=== PATIENT | male | born 1955 | race African-American/Black ===

== ENCOUNTER 2016-05-18 11:41 | Emergency (ER) | payer MEDICARE, OTHER ==
[~2016-05-18] VITALS: Ht 182.9 cm; Wt 95.3 kg
[~2016-05-18 11:41] MED LIST: ALBUTEROL SULF8.5 GM INH; ALBUTEROL2.5 MG/3 M INH; AMLODIPINE BES2.5 MG ORAL; AZITHROMYCIN250 MG ORAL; LEVAQUIN500 MG ORAL; LISINOPRIL-HCT1 EACH ORAL; METFORMIN HCL500 M1 ORAL; PREDNISONE20 MG ORAL; PROMETHAZINE-C118 M1 ORAL; TERAZOSIN HCL1 MG ORAL; TRADJENTA5 MG PO; ZOCOR20 M1 ORAL
[2016-05-18 12:39] LABS: APPEARANCE,URINE CLEAR; KETONES,URINE NEGATIVE (NEGATIVE); LEUKOCYTE ESTERASE ,URINE NEGATIVE (NEGATIVE); NITRITE,URINE NEGATIVE (NEGATIVE); PH,URINE 5 (4.5-8.0); PROTEIN,URINE NEGATIVE (NEGATIVE); UROBILINOGEN,URINE NORMAL MG/DL (0.0-1.0)
[2016-05-18] MEDS ORDERED: BACTRIM DS TAB1 EAC1 ORAL (13:06)
[2016-05-18 13:21] VITALS: BP 112/61
--- NOTE | 2016-05-18 18:06 | Emergency Room Report ---
History of Present Illness General Chief Complaint: Pain Present Illness HPI The patient is a 60-year-old male presenting with rectal pain which began 3 weeks prior. The pain is described as an 8/10 dull ache it does not radiate. No known relieving factors. Pain is worse with touch. The patient denies pain with defecation. Pt denies anal sex. The patient denies N, V, F, chills, dysuria, hematuria, penile DC, melena, hematochezia Allergies: Coded Allergies: TETRACYCLINES (Unverified Allergy, Unknown, 08/23/14) Patient History Past Medical History: see triage record Pertinent Family History: none Reviewed Nursing Documentation: PMH: Agreed, PSxH: Agreed Nursing Documentation-PMH Hx Cardiac Problems: No - high cholesterol Hx Hypertension: Yes Hx Diabetes: Yes Hx Dialysis: No - Chronic kidney disease Review of Systems All Other Systems: negative except mentioned in HPI Physical Exam Vital Signs Date Time Temp Pulse Resp B/P Pulse Ox O2 Delivery O2 Flow Rate FiO2 05/18/16 11:54 97.5 54 20 102/53 100 Room Air Sp02 EP Interpretation: reviewed, normal General Appearance: no apparent distress, alert, GCS 15, non-toxic Head: normocephalic, atraumatic Eyes: bilateral eye PERRL, bilateral eye normal inspection Gastrointestinal: normal bowel sounds, non tender, soft, no mass, non-distended , no guarding, no hernia, no rebound Genitourinary: normal inspection, no CVA tenderness, penis normal, prostate normal, other - TTP with palpation of testicles Musculoskeletal: back normal, gait/station normal, normal range of motion, non- tender Neurologic: alert, oriented x3, responsive, motor strength/tone normal, sensory intact, speech normal Psychiatric: judgement/insight normal, memory normal, mood/affect normal, no suicidal/homicidal ideation Skin: normal color, no rash, warm/dry, well hydrated Lymphatic: no adenopathy Medical Decision Making PA Attestation Dr. Demarco is my supervising physician. Patient management was discussed with my supervising physician Diagnostic Impression: Primary Impression: Orchitis ER Course The patient is a 60-year-old male presenting with rectal pain which began 3 weeks prior. Differential diagnosis considered: Hemorrhoids, prostatitis, STD, orchitis PE: vitals WNL. NAD. Abdomen: Normal appearance. Non distended. No ecchymosis. Normal BS. Non TTP. No McBurney point tenderness. No guarding. No CVA tenderness. Rectal exam: Normal rectal tone. Prostate is soft. No nodules.Not enlarged. Non tender TTP with palpation of testicles. No edema. Urinalysis is unremarkable. The patient will be treated for orchitis. Pt allergic to tetracyclines and will be ID'ed home with prescription for bactrim. Pt will FU with PMD [facility] Laboratory Tests Test 05/18/16 12:00 Urine Color Pale yellow Urine Appearance Clear Urine pH 5 (4.5-8.0) Urine Specific [place] 1.015 (1.005-1.035) Urine Protein Negative (NEGATIVE) Urine Glucose (UA) Negative (NEGATIVE) Urine Ketones Negative (NEGATIVE) Urine Occult Blood Negative (NEGATIVE) Urine Nitrite Negative (NEGATIVE) Urine Bilirubin Negative (NEGATIVE) Urine Urobilinogen Normal MG/DL (0.0-1.0) Urine Leukocyte Esterase Negative (NEGATIVE) Lab Results Impression Unremarkable Last Vital Signs Date Time Temp Pulse Resp B/P Pulse Ox O2 Delivery O2 Flow Rate FiO2 05/18/16 13:21 52 20 112/61 100 Room Air 05/18/16 13:19 97.5 Status: improved Disposition: HOME, SELF-CARE Condition: Improved Scripts Trimethoprim/Sulfamethoxazole 160/800* (BACTRIM DS TABLET*) 1 Each Tablet 1 TAB ORAL TWICE A DAY, #14 TAB Prov: JD GONZALEZ 05/18/16 Patient Instructions: Orchitis Additional Instructions: I discussed my findings with the patient. All questions and concerns have been answered. Treatment and medication compliance have been addressed. I advised the patient that they need to follow up with PMD in 3-5 days. Return to ED if symptoms worsen, new symptoms arise, or if needed for any reason. Patient verbalized understanding of discharge instructions. JD GONZALEZ May 18, 2016 18:06
== END 2016-05-18 13:21 | disposition home or self-care (01) ==
LOC: EMR 12:50
DX: N45.2 Orchitis (principal); Z88.1 Allergy status to other antibiotic agents; E78.00 Pure hypercholesterolemia, unspecified; E11.9 Type 2 diabetes mellitus without complications; I12.9 Hypertensive chronic kidney disease with stage 1 through stage 4 chronic kidney disease, or unspecified chronic kidney disease; N18.9 Chronic kidney disease, unspecified
CPT/HCPCS: 81003; 99282

== ENCOUNTER 2016-10-12 13:57 | Emergency (ER) | payer MEDICARE, OTHER ==
[~2016-10-12] VITALS: Ht 185.4 cm; Wt 97.5 kg
[~2016-10-12 13:57] MED LIST changes: +BACTRIM DS TAB1 EAC1 ORAL
[2016-10-12 14:27] VITALS: BP 106/64
--- NOTE | 2016-10-12 14:58 | Diagnostic Imaging Report ---
Indication: Chest pain Technique: Single portable AP view of the chest. Findings: Comparison: 02/29/2016 Thoracic vertebral osteophytes from aortic arch calcification again noted. Remaining bones and extra pulmonary soft tissues, remainder of the cardiomediastinal silhouette, pulmonary vasculature and parenchyma, and pleural surfaces are unremarkable. IMPRESSION: No evidence of acute cardiopulmonary disease, unchanged Stable chronic changes as described.
[2016-10-12 15:00] LABS: APPEARANCE,URINE CLEAR; KETONES,URINE NEGATIVE (NEGATIVE); LEUKOCYTE ESTERASE ,URINE NEGATIVE (NEGATIVE); NITRITE,URINE NEGATIVE (NEGATIVE); PH,URINE 6 (4.5-8.0); PROTEIN,URINE NEGATIVE (NEGATIVE); UROBILINOGEN,URINE NORMAL MG/DL (0.0-1.0)
[2016-10-12 15:07] LABS: BASOPHILS % (AUTO) 1.1 % (0.0-2.0); EOSINOPHILS % (AUTO) 2.8 % (0.0-3.0); LYMPHOCYTES % (AUTO) 27.4 % (20.0-45.0); MEAN CORPUSCULAR HEMOGLOBIN 28.8 PG (27.0-31.0); MEAN CORPUSCULAR HGB CONC 33.7 G/DL (32.0-36.0); MEAN CORPUSCULAR VOLUME 86 FL (80-99); MEAN PLATELET VOLUME 7.6 FL (6.5-10.1); MONOCYTES % (AUTO) 8.4 % (1.0-10.0); NEUTROPHILS % (AUTO) 60.3 % (45.0-75.0); PLATELET COUNT 163 K/UL (150-450); RED BLOOD COUNT 4.53 M/UL (4.70-6.10); RED CELL DISTRIBUTION WIDTH 12.3 % (11.6-14.8); WHITE BLOOD COUNT 7.2 K/UL (4.8-10.8)
[2016-10-12 15:11] VITALS: BP 126/48
[2016-10-12 15:19] LABS: ALBUMIN/GLOBULIN RATIO 1.3 (1.0-2.7); CALCIUM 10.4 mg/dL (8.6-10.2); CREATININE 3.1 mg/dL (0.7-1.2); GLOMERULAR FILTRATION RATE 24.8 mL/min (>60); POTASSIUM 4.1 mEQ/L (3.4-4.9); TOTAL PROTEIN 6.9 g/dL (6.6-8.7); TROPONIN I < 0.30 ng/mL (<=0.30)
--- NOTE | 2016-10-12 15:21 | Emergency Room Report ---
History of Present Illness General Chief Complaint: Generalized Weakness Source: Patient Present Illness HPI Patient complains of generalized weakness for the past few days. The patient states when he stands up he felt lightheaded like he could pass out. He states he also has had a cough for the past few weeks. He denies sputum production. He also complains of frequent urination. He denies dysuria. Denies fever or chills. He states that he is also had nausea but no vomiting. He denies headache neck pain. He denies abdominal pain. He has no other complaints. Allergies: Coded Allergies: TETRACYCLINES (Unverified Allergy, Unknown, 08/23/14) Patient History Past Medical History: see triage record, DM, HTN, renal disease, other - HLP Social History: Reports: alcohol use - 1 beer/week, drug use - THC, smoking - cigars Reviewed Nursing Documentation: PMH: Agreed, PSxH: Agreed Nursing Documentation-PMH Past Medical History: No History, Except For Hx Cardiac Problems: No - high cholesterol Hx Hypertension: Yes Hx Diabetes: Yes Hx Dialysis: No - Chronic kidney disease Review of Systems All Other Systems: negative except mentioned in HPI Physical Exam Vital Signs Date Time Temp Pulse Resp B/P Pulse Ox O2 Delivery O2 Flow Rate FiO2 10/12/16 14:10 98.4 66 18 106/64 97 Room Air Sp02 EP Interpretation: reviewed, normal General Appearance: no apparent distress, alert, GCS 15, non-toxic Head: normocephalic, atraumatic Eyes: bilateral eye PERRL, bilateral eye normal inspection ENT: hearing grossly normal, normal pharynx, no angioedema, normal voice Neck: full range of motion, supple/symm/no masses Respiratory: chest non-tender, lungs clear, normal breath sounds, no respiratory distress, no retraction, no accessory muscle use, speaking full sentences Cardiovascular #1: regular rate, rhythm, no edema, systolic murmur Gastrointestinal: normal bowel sounds, non tender, soft, non-distended, no guarding, no rebound Rectal: deferred Musculoskeletal: back normal, gait/station normal, normal range of motion, non- tender Neurologic: alert, oriented x3, responsive, motor strength/tone normal, sensory intact, speech normal Psychiatric: judgement/insight normal, memory normal, mood/affect normal, no suicidal/homicidal ideation Skin: normal color, no rash, warm/dry, well hydrated Medical Decision Making Diagnostic Impression: Primary Impression: Pre-syncope Additional Impressions: Azotemia Hyperglycemia ER Course I suspect the presyncope and symptoms that the patient is presenting with is a nonemergent in etiology. Regarding the history, and symptoms are nonexertional. On physical exam, the patient is not hypotensive, has no findings of CHF, and no significant cardiac murmur suggestive of valvular heart disease or cardiac outflow obstruction. The patient reports no history of seizure or head trauma. EKG showed no evidence of concerning findings of QT prolongation, Brugada syndrome or significant ST changes suggestive of acute ischemia, dysrhythmias or significant conduction abnormalities. On laboratory evaluation, blood sugar was elevated to 199 and the patient is not anemic. The patient was educated that the reason he likely is having polyuria is because he is not controlling his blood sugar well. He was educated on the dangers of poor diabetes control. The patient was counseled that, though unlikely, the possibility of an emergent cause of his symptoms may be present and that the patient should return immediately if symptoms persist or worsen. I believe the patient is stable for discharge to followup with his PMD for further workup. Labs Test 10/12/16 14:40 10/12/16 15:00 Urine Color Pale yellow Urine Appearance Clear Urine pH 6 (4.5-8.0) Urine Specific [place] 1.010 (1.005-1.035) Urine Protein Negative (NEGATIVE) Urine Glucose (UA) Negative (NEGATIVE) Urine Ketones Negative (NEGATIVE) Urine Occult Blood Negative (NEGATIVE) Urine Nitrite Negative (NEGATIVE) Urine Bilirubin Negative (NEGATIVE) Urine Urobilinogen Normal MG/DL (0.0-1.0) Urine Leukocyte Esterase Negative (NEGATIVE) Urine Opiates Screen Negative (NEGATIVE) Urine Barbiturates Screen Negative (NEGATIVE) Phencyclidine (PCP) Screen Negative (NEGATIVE) Urine Amphetamines Screen Negative (NEGATIVE) Urine Benzodiazepines Screen Negative (NEGATIVE) Urine Cocaine Screen Positive (NEGATIVE) Urine Marijuana (THC) Screen Negative (NEGATIVE) White Blood Count 7.2 K/UL (4.8-10.8) Red Blood Count 4.53 M/UL (4.70-6.10) Hemoglobin 13.1 G/DL (14.2-18.0) Hematocrit 38.8 % (42.0-52.0) Mean Corpuscular Volume 86 FL (80-99) Mean Corpuscular Hemoglobin 28.8 PG (27.0-31.0) Mean Corpuscular Hemoglobin Concent 33.7 G/DL (32.0-36.0) Red Cell Distribution Width 12.3 % (11.6-14.8) Platelet Count 163 K/UL (150-450) Mean Platelet Volume 7.6 FL (6.5-10.1) Neutrophils (%) (Auto) 60.3 % (45.0-75.0) Lymphocytes (%) (Auto) 27.4 % (20.0-45.0) Monocytes (%) (Auto) 8.4 % (1.0-10.0) Eosinophils (%) (Auto) 2.8 % (0.0-3.0) Basophils (%) (Auto) 1.1 % (0.0-2.0) Prothrombin Time 10.0 SEC (9.30-11.50) Prothromb Time International Ratio 1.0 (0.9-1.1) Activated Partial Thromboplast Time 28 SEC (23-33) Sodium Level 137 mEQ/L (135-145) Potassium Level 4.1 mEQ/L (3.4-4.9) Chloride Level 99 mEQ/L (98-107) Carbon Dioxide Level 23 mEQ/L (20-30) Anion Gap 15 (5-15) Blood Urea Nitrogen 35 mg/dL (7-23) Creatinine 3.1 mg/dL (0.7-1.2) Estimat Glomerular Filtration Rate 24.8 mL/min (>60) Glucose Level 199 mg/dL (74-106) Calcium Level 10.4 mg/dL (8.6-10.2) Total Bilirubin 0.6 mg/dL (0.0-1.2) Aspartate Amino Transf (AST/SGOT) 16 U/L (5-40) Alanine Aminotransferase (ALT/SGPT) 12 U/L (3-41) Alkaline Phosphatase 46 U/L (40-129) Total Creatine Kinase 212 U/L (38-174) Troponin I < 0.30 ng/mL (<=0.30) Total Protein 6.9 g/dL (6.6-8.7) Albumin 4.0 g/dL (3.5-5.2) Globulin 2.9 g/dL Albumin/Globulin Ratio 1.3 (1.0-2.7) EKG Diagnostic Results Rate: normal Rhythm: NSR ST Segments: no acute changes Rhythm Strip Diag. Results EP Interpretation: yes Rate: 60's Rhythm: NSR, no PVC's, no ectopy Chest X-Ray Diagnostic Results Chest X-Ray Ordered: Yes # of Views/Limited/Complete: 1 View Interpretation: no consolidation, no effusion, no pneumothorax, no acute cardiopulmonary disease Indication: Other - cough Impression: No acute disease Date Electronically Signed: Oct 12, 2016 Time Electronically Signed: 15:23 Interpreting ER Physician: Alondra Last Vital Signs Date Time Temp Pulse Resp B/P Pulse Ox O2 Delivery O2 Flow Rate FiO2 10/12/16 15:11 63 18 126/48 97 Room Air 10/12/16 14:27 98.4 Status: improved Disposition: HOME, SELF-CARE Condition: Improved Referrals: NON PHYSICIAN (PCP) Patient Instructions: Near-Syncope, [id number], Weakness MONICA CARDOZO D.O. Oct 12, 2016 15:21
[2016-10-12 15:29] LABS: CKMB 2.9 ng/mL (< 6.7)
[2016-10-12 15:57] VITALS: BP 121/51
--- NOTE | 2016-10-13 15:29 | Cardiology Report ---
APPROVED REPORT EKG Measurement Heart [id number] ID [id number] Normal sinus rhythm Minimal voltage criteria for LVH, may be normal variant Borderline ECG
== END 2016-10-12 16:04 | disposition home or self-care (01) ==
LOC: EMR 14:54
DX: R55 Syncope and collapse (principal); E11.65 Type 2 diabetes mellitus with hyperglycemia; I12.9 Hypertensive chronic kidney disease with stage 1 through stage 4 chronic kidney disease, or unspecified chronic kidney disease; N18.9 Chronic kidney disease, unspecified; F17.210 Nicotine dependence, cigarettes, uncomplicated; Z88.1 Allergy status to other antibiotic agents
CPT/HCPCS: 36415; 71010; 80053; 80300; 81003; 82550; 82553; 82962; 84484; 85025; 85610; 85730; 93005; 96374; 96375

== ENCOUNTER 2017-02-01 10:55 | Emergency (ER) | payer MEDICARE, OTHER ==
[~2017-02-01] VITALS: Ht 182.9 cm; Wt 95.3 kg
[2017-02-01 11:09] VITALS: BP 122/59
[2017-02-01 12:00] LABS: EOSINOPHILS % (AUTO) 2.7 % (0.0-3.0); LYMPHOCYTES % (AUTO) 29.8 % (20.0-45.0); MEAN CORPUSCULAR HEMOGLOBIN 29.2 PG (27.0-31.0); MEAN CORPUSCULAR HGB CONC 32.5 G/DL (32.0-36.0); MEAN CORPUSCULAR VOLUME 90 FL (80-99); MEAN PLATELET VOLUME 7.6 FL (6.5-10.1); MONOCYTES % (AUTO) 9.5 % (1.0-10.0); PLATELET COUNT 212 K/UL (150-450); RED BLOOD COUNT 4.81 M/UL (4.70-6.10); RED CELL DISTRIBUTION WIDTH 14.2 % (11.6-14.8); WHITE BLOOD COUNT 6.2 K/UL (4.8-10.8)
[2017-02-01 12:06] LABS: APPEARANCE,URINE CLEAR; KETONES,URINE NEGATIVE (NEGATIVE); LEUKOCYTE ESTERASE ,URINE NEGATIVE (NEGATIVE); NITRITE,URINE NEGATIVE (NEGATIVE); PH,URINE 6 (4.5-8.0); PROTEIN,URINE NEGATIVE (NEGATIVE); UROBILINOGEN,URINE NORMAL MG/DL (0.0-1.0)
--- NOTE | 2017-02-01 12:23 | Diagnostic Imaging Report ---
Indication: Chest pain Comparison: 10/12/16 A single view chest radiograph was obtained. Findings: Cardiomediastinal appearance is within normal limits for age. Pulmonary vascularity is appropriate. The diaphragmatic contour is smooth and costophrenic angles are sharp. No pleural effusions are identified. The bones are unremarkable. Impression: No acute findings
[2017-02-01 12:37] LABS: ALANINE AMINOTRANSFERASE 21 U/L (12-78); ANION GAP 12 (5-15); ASPARTATE AMINO TRANSFERASE 19 U/L (15-37); CALCIUM 10.9 MG/DL (8.5-10.1); CARBON DIOXIDE 26 MMOL/L (21-32); CHLORIDE 107 MMOL/L (98-107); CKMB 2.9 NG/ML (0.0-3.6); CREATININE 2.4 MG/DL (0.55-1.30); GLOMERULAR FILTRATION RATE 33.3 mL/min (>60); SODIUM 141 MMOL/L (136-145); TOTAL PROTEIN 7.7 G/DL (6.4-8.2)
[2017-02-01 13:10] VITALS: BP 144/75
--- NOTE | 2017-02-01 14:15 | Diagnostic Imaging Report ---
Indication:Scrotal pain Technique: Real time grayscale and duplex Doppler imaging of the scrotum performed. Comparison: None Findings: The size, contour, and echogenicitiy of the testis appear normal bilaterally. There is no mass or abnormal fluid collections within the scrotum. Bilateral epididymal cysts are present. There are also cysts involving the peripheral aspect of the testis consistent tunica cysts. There is good doppler evidence of blood flow within both testes. Epididimi are unremarkable otherwise. ] This measures 3.9 x 9 x 2.8 cm. Left testis 4 x 2.1 x 3.1 cm. Impression: No acute pathology. No evidence of testicular torsion or mass.
--- NOTE | 2017-02-01 14:44 | Emergency Room Report ---
History of Present Illness General Chief Complaint: Chest Pain Source: Patient, Medical Record Present Illness HPI This patient complains of left-sided chest pain that he has had for the past few weeks. He states it has been constant. He describes it as sharp. It is sometimes worse with movement and he can localize it to a couple fingers. He denies recent illness. Denies cough or congestion. He denies fever or chills. He denies shortness of breath. He denies abdominal pain. He states that he also was doing a self testicular exam and noted that in his right testicle there was a lump. He had not felt this previously. He denies pain in this location. He denies dysuria or hematuria. He has no other complaints. Allergies: Coded Allergies: TETRACYCLINES (Unverified Allergy, Unknown, 08/23/14) Patient History Past Medical History: see triage record, DM, HTN, renal disease, other - HLP Social History: Reports: smoking - occasional tobacco 1 cig/week. Occ ETOH, Occ THC Reviewed Nursing Documentation: PMH: Agreed, PSxH: Agreed Nursing Documentation-PMH Past Medical History: No History, Except For Hx Cardiac Problems: No - high cholesterol Hx Hypertension: Yes Hx Diabetes: Yes Hx Dialysis: No - Chronic kidney disease Review of Systems All Other Systems: negative except mentioned in HPI Physical Exam Vital Signs Date Time Temp Pulse Resp B/P (MAP) Pulse Ox O2 Delivery O2 Flow Rate FiO2 02/01/17 10:59 97.5 55 16 123/67 99 Room Air Sp02 EP Interpretation: reviewed, normal General Appearance: no apparent distress, alert, GCS 15, non-toxic Head: normocephalic, atraumatic Eyes: bilateral eye normal inspection, bilateral eye PERRL ENT: hearing grossly normal, normal pharynx, no angioedema, normal voice Neck: full range of motion, supple/symm/no masses Respiratory: chest non-tender, lungs clear, normal breath sounds, speaking full sentences Cardiovascular #1: regular rate, rhythm, no edema Gastrointestinal: normal bowel sounds, non tender, soft, non-distended, no guarding, no rebound Rectal: deferred Genitourinary: normal inspection Musculoskeletal: back normal, gait/station normal, normal range of motion, non- tender, calf tenderness Neurologic: alert, oriented x3, responsive, motor strength/tone normal, sensory intact, speech normal Psychiatric: judgement/insight normal, memory normal, mood/affect normal, no suicidal/homicidal ideation Reflexes: 3+ bicep (R), 3+ bicep (L), 3+ tricep (R), 3+ tricep (L), 3+ knee (R) , 3+ knee (L) Skin: normal color, no rash, warm/dry, well hydrated Lymphatic: no adenopathy Medical Decision Making Diagnostic Impression: Primary Impression: Chest pain ER Course This patient has nonspecific chest pain. Given the length of symptoms, this workup is very reassuring with negative cardiac enzymes, normal EKG, and normal chest x-ray. The patient is low risk and his symptoms are atypical for acute coronary syndrome. I have very low suspicion for PE, aortic dissection or pneumothorax based on history/physical, laboratory and radiologic workup. The patient also had complained of pinning a mass on his testicle, however ultrasound did not identify this. The patient was given close return precautions and followup instructions. Laboratory Tests Test 02/01/17 11:24 02/01/17 11:45 Urine Color Pale yellow Urine Appearance Clear Urine pH 6 (4.5-8.0) Urine Specific [place] 1.015 (1.005-1.035) Urine Protein Negative (NEGATIVE) Urine Glucose (UA) Negative (NEGATIVE) Urine Ketones Negative (NEGATIVE) Urine Occult Blood Negative (NEGATIVE) Urine Nitrite Negative (NEGATIVE) Urine Bilirubin Negative (NEGATIVE) Urine Urobilinogen Normal MG/DL (0.0-1.0) Urine Leukocyte Esterase Negative (NEGATIVE) White Blood Count 6.2 K/UL (4.8-10.8) Red Blood Count 4.81 M/UL (4.70-6.10) Hemoglobin 14.0 G/DL (14.2-18.0) L Hematocrit 43.1 % (42.0-52.0) Mean Corpuscular Volume 90 FL (80-99) Mean Corpuscular Hemoglobin 29.2 PG (27.0-31.0) Mean Corpuscular Hemoglobin Concent 32.5 G/DL (32.0-36.0) Red Cell Distribution Width 14.2 % (11.6-14.8) Platelet Count 212 K/UL (150-450) Mean Platelet Volume 7.6 FL (6.5-10.1) Neutrophils (%) (Auto) 57.0 % (45.0-75.0) Lymphocytes (%) (Auto) 29.8 % (20.0-45.0) Monocytes (%) (Auto) 9.5 % (1.0-10.0) Eosinophils (%) (Auto) 2.7 % (0.0-3.0) Basophils (%) (Auto) 1.0 % (0.0-2.0) Sodium Level 141 MMOL/L (136-145) Potassium Level 4.0 MMOL/L (3.5-5.1) Chloride Level 107 MMOL/L (98-107) Carbon Dioxide Level 26 MMOL/L (21-32) Anion Gap 12 (5-15) Blood Urea Nitrogen 31 mg/dL (7-18) H Creatinine 2.4 MG/DL (0.55-1.30) H Estimate Glomerular Filtration Rate 33.3 mL/min (>60) Glucose Level 96 MG/DL (74-106) Calcium Level 10.9 MG/DL (8.5-10.1) H Total Bilirubin 0.7 MG/DL (0.2-1.0) Aspartate Amino Transferase (AST) 19 U/L (15-37) Alanine Aminotransferase (ALT) 21 U/L (12-78) Alkaline Phosphatase 54 U/L (46-116) Total Creatine Kinase 192 U/L (26-308) Creatine Kinase MB 2.9 NG/ML (0.0-3.6) Creatine Kinase MB Relative Index 1.5 Troponin I 0.004 ng/mL (0.000-0.056) Total Protein 7.7 G/DL (6.4-8.2) Albumin 3.9 G/DL (3.4-5.0) Globulin 3.8 g/dL Albumin/Globulin Ratio 1.0 (1.0-2.7) Urine Opiates Screen Negative (NEGATIVE) Urine Barbiturates Screen Negative (NEGATIVE) Phencyclidine (PCP) Screen Negative (NEGATIVE) Urine Amphetamines Screen Negative (NEGATIVE) Urine Benzodiazepines Screen Negative (NEGATIVE) Urine Cocaine Screen Positive (NEGATIVE) H Urine Marijuana (THC) Screen Negative (NEGATIVE) EKG Diagnostic Results Rhythm: other - S.bradycardia ST Segments: other Other Impression NSST Rhythm Strip Diag. Results EP Interpretation: yes Rate: 50's Rhythm: no PVC's, no ectopy, other Other Impression S.ramsey Chest X-Ray Diagnostic Results Chest X-Ray Diagnostic Results : Chest X-Ray Ordered: Yes # of Views/Limited/Complete: 1 View Indication: Chest Pain EP Interpretation: Yes Interpretation: no consolidation, no effusion, no pneumothorax, no acute cardiopulmonary disease Impression: No acute disease Electronically Signed by: Alondra CT/MRI/US Diagnostic Results CT/MRI/US Diagnostic Results : Imaging Test Ordered: Testicular US Impression Normal. No mass. Last Vital Signs Date Time Temp Pulse Resp B/P (MAP) Pulse Ox O2 Delivery O2 Flow Rate FiO2 02/01/17 11:09 62 16 Room Air 02/01/17 11:09 97.5 122/59 100 Status: improved Disposition: HOME, SELF-CARE Condition: Improved Referrals: NON PHYSICIAN (PCP) Patient Instructions: Nonspecific Chest Pain MONICA CARDOZO D.O. Feb 01, 2017 14:44
[2017-02-01 15:30] VITALS: BP 135/76
--- NOTE | 2017-02-12 15:51 | Cardiology Report ---
APPROVED REPORT EKG Measurement Heart [id number] Sinus bradycardia Left axis deviation Incomplete right bundle branch block Minimal voltage criteria for LVH, may be normal variant Nonspecific T wave abnormality Abnormal ECG
== END 2017-02-01 15:30 | disposition home or self-care (01) ==
LOC: EMR 11:05
DX: R07.89 Other chest pain (principal); E11.9 Type 2 diabetes mellitus without complications; I12.9 Hypertensive chronic kidney disease with stage 1 through stage 4 chronic kidney disease, or unspecified chronic kidney disease; N18.9 Chronic kidney disease, unspecified; Z88.1 Allergy status to other antibiotic agents; E78.00 Pure hypercholesterolemia, unspecified
CPT/HCPCS: 36415; 71010; 76870; 80053; 80300; 81003; 82550; 82553; 84484; 85025; 93005; 99284

== ENCOUNTER 2017-03-29 13:51 | Emergency (ER) | payer MEDICARE, OTHER ==
[~2017-03-29] VITALS: Ht 182.9 cm; Wt 97.5 kg
[2017-03-29] MEDS ORDERED: Sodium Chloride 500ML 500 ML IV ONE (14:22)
[2017-03-29 14:35] VITALS: BP 115/66
[2017-03-29 14:50] LABS: BASOPHILS % (AUTO) 1.8 % (0.0-2.0); EOSINOPHILS % (AUTO) 2.4 % (0.0-3.0); LYMPHOCYTES % (AUTO) 24.5 % (20.0-45.0); MEAN CORPUSCULAR HEMOGLOBIN 27.9 PG (27.0-31.0); MEAN CORPUSCULAR HGB CONC 31.8 G/DL (32.0-36.0); MEAN CORPUSCULAR VOLUME 88 FL (80-99); MEAN PLATELET VOLUME 9.5 FL (6.5-10.1); NEUTROPHILS % (AUTO) 57.4 % (45.0-75.0); PLATELET COUNT 239 K/UL (150-450); RED BLOOD COUNT 5.77 M/UL (4.70-6.10); RED CELL DISTRIBUTION WIDTH 13.3 % (11.6-14.8); WHITE BLOOD COUNT 6.2 K/UL (4.8-10.8)
[2017-03-29 14:52] LABS: APPEARANCE,URINE CLEAR; KETONES,URINE NEGATIVE (NEGATIVE); LEUKOCYTE ESTERASE ,URINE NEGATIVE (NEGATIVE); NITRITE,URINE NEGATIVE (NEGATIVE); PH,URINE 6 (4.5-8.0); PROTEIN,URINE 1+ (NEGATIVE); UROBILINOGEN,URINE NORMAL MG/DL (0.0-1.0)
--- NOTE | 2017-03-29 14:59 | Emergency Room Report ---
History of Present Illness General Chief Complaint: Abdominal Pain Source: Patient Present Illness HPI 61-year-old male presents ED for abdominal pain times one week. Patient notes pain over the epigastric region radiating to both flanks, 6/10, sharp. Patient states he has history of hiatal hernia but states this pain feels different. Pain is intermittent. Denies chest pain or shortness breath. Denies fevers or chills. Denies nausea or vomiting. No other aggravating relieving factors. Denies any other associated symptoms Allergies: Coded Allergies: TETRACYCLINES (Unverified Allergy, Unknown, 08/23/14) Patient History Past Medical History: DM, HTN Past Surgical History: none Pertinent Family History: none Social History: Denies: smoking, alcohol use, drug use Immunizations: UTD Reviewed Nursing Documentation: PMH: Agreed, PSxH: Agreed Nursing Documentation-PMH Hx Cardiac Problems: No - high cholesterol Hx Hypertension: Yes Hx Diabetes: Yes Hx Dialysis: No - Chronic kidney disease Review of Systems All Other Systems: negative except mentioned in HPI Physical Exam Vital Signs Date Time Temp Pulse Resp B/P (MAP) Pulse Ox O2 Delivery O2 Flow Rate FiO2 03/29/17 14:05 99.1 107 18 151/81 97 03/29/17 14:35 Room Air Sp02 EP Interpretation: reviewed, normal General Appearance: no apparent distress, alert, GCS 15, non-toxic Head: normocephalic, atraumatic Eyes: bilateral eye normal inspection, bilateral eye PERRL ENT: hearing grossly normal, normal pharynx, no angioedema, normal voice Neck: full range of motion, supple/symm/no masses Respiratory: chest non-tender, lungs clear, normal breath sounds, speaking full sentences Cardiovascular #1: regular rate, rhythm, no edema Cardiovascular #2: 2+ carotid (R), 2+ carotid (L), 2+ radial (R), 2+ radial (L) , 2+ dorsalis pedis (R), 2+ dorsalis pedis (L) Gastrointestinal: normal bowel sounds, soft, non-distended, no guarding, no rebound, tenderness Rectal: deferred Genitourinary: normal inspection, no CVA tenderness Musculoskeletal: back normal, gait/station normal, normal range of motion, non- tender Neurologic: alert, oriented x3, responsive, motor strength/tone normal, sensory intact, speech normal Psychiatric: judgement/insight normal, memory normal, mood/affect normal, no suicidal/homicidal ideation Reflexes: 3+ bicep (R), 3+ bicep (L), 3+ tricep (R), 3+ tricep (L), 3+ knee (R) , 3+ knee (L) Skin: normal color, no rash, warm/dry, well hydrated Lymphatic: no adenopathy Medical Decision Making Diagnostic Impression: Primary Impression: Abdominal pain Qualified Codes: R10.13 - Epigastric pain Additional Impression: CKD (chronic kidney disease) Qualified Codes: N18.9 - Chronic kidney disease, unspecified ER Course Hospital Course 61-year-old M presents to ED with abdominal pain Differential diagnosis includes-appendicitis, cholecystitis, small bowel obstruction, gastritis, Clinical course Patient placed on stretcher. After initial history and physical I ordered labs , IV fluids, pain medications and CT scan Labs - no leukocytosis, Cr 2.2, LFTs normal, lipase 199 CT scan shows prominence of pancreatitis suggestive of pancreatitis I discussed the findings with the patient. Patient has no leukocytosis. Patient is not in distress. No guarding or rebound on exam. Lipase 199. I discussed option for admission with patient; patient stated he prefers to be discharged and will followup with PMD I feel this is a highly complex case requiring extensive working including EKG/ Rhythm strip, Xray/CT/US, Blood/urine lab work, repeat exams while in ED, and administration of strong opiates/narcotics for pain control, admission to hospital or close patient follow up. Diagnosis - abdominal pain, CKD Stable and discharged to home with Rx Tramadol. Followup with PMD. Return to ED if symptoms recur or worsen Labs Test 03/29/17 14:30 White Blood Count 6.2 K/UL (4.8-10.8) Red Blood Count 5.77 M/UL (4.70-6.10) Hemoglobin 16.1 G/DL (14.2-18.0) Hematocrit 50.6 % (42.0-52.0) Mean Corpuscular Volume 88 FL (80-99) Mean Corpuscular Hemoglobin 27.9 PG (27.0-31.0) Mean Corpuscular Hemoglobin Concent 31.8 G/DL (32.0-36.0) Red Cell Distribution Width 13.3 % (11.6-14.8) Platelet Count 239 K/UL (150-450) Mean Platelet Volume 9.5 FL (6.5-10.1) Neutrophils (%) (Auto) 57.4 % (45.0-75.0) Lymphocytes (%) (Auto) 24.5 % (20.0-45.0) Monocytes (%) (Auto) 14.0 % (1.0-10.0) Eosinophils (%) (Auto) 2.4 % (0.0-3.0) Basophils (%) (Auto) 1.8 % (0.0-2.0) Urine Color Pale yellow Urine Appearance Clear Urine pH 6 (4.5-8.0) Urine Specific [place] 1.010 (1.005-1.035) Urine Protein 1+ (NEGATIVE) Urine Glucose (UA) Negative (NEGATIVE) Urine Ketones Negative (NEGATIVE) Urine Occult Blood 1+ (NEGATIVE) Urine Nitrite Negative (NEGATIVE) Urine Bilirubin Negative (NEGATIVE) Urine Urobilinogen Normal MG/DL (0.0-1.0) Urine Leukocyte Esterase Negative (NEGATIVE) Urine RBC 0-2 /HPF (0 - 0) Urine WBC 0-2 /HPF (0 - 0) Urine Squamous Epithelial Cells None /LPF (NONE/OCC) Urine Bacteria Few /HPF (NONE) Sodium Level 139 MMOL/L (136-145) Potassium Level 4.0 MMOL/L (3.5-5.1) Chloride Level 105 MMOL/L (98-107) Carbon Dioxide Level 27 MMOL/L (21-32) Anion Gap 7 mmol/L (5-15) Blood Urea Nitrogen 25 mg/dL (7-18) Creatinine 2.2 MG/DL (0.55-1.30) Estimat Glomerular Filtration Rate 36.8 mL/min (>60) Glucose Level 127 MG/DL (74-106) Calcium Level 10.5 MG/DL (8.5-10.1) Total Bilirubin 0.6 MG/DL (0.2-1.0) Aspartate Amino Transf (AST/SGOT) 24 U/L (15-37) Alanine Aminotransferase (ALT/SGPT) 23 U/L (12-78) Alkaline Phosphatase 65 U/L (46-116) Troponin I 0.007 ng/mL (0.000-0.056) Total Protein 7.8 G/DL (6.4-8.2) Albumin 3.9 G/DL (3.4-5.0) Globulin 3.9 g/dL Albumin/Globulin Ratio 1.0 (1.0-2.7) Lipase 199 U/L (73-393) CT/MRI/US Diagnostic Results CT/MRI/US Diagnostic Results : Imaging Test Ordered: CT A/P Impression ? pancreatitis Last Vital Signs Date Time Temp Pulse Resp B/P (MAP) Pulse Ox O2 Delivery O2 Flow Rate FiO2 03/29/17 14:35 87 20 115/66 100 Room Air 03/29/17 14:05 99.1 Status: improved Disposition: HOME, SELF-CARE Condition: Stable Scripts Codeine/Promethazine Hcl* (PROMETHAZINE-CODEINE SYRUP*) 118 Ml Syrup 5 ML ORAL Q6H Y for For Cough, #118 ML 0 Refills Prov: STUART DENNIS M.D. 03/29/17 Tramadol Hcl* (ULTRAM*) 50 Mg Tablet 50 MG ORAL Q6H Y for For Pain, #20 TAB 0 Refills Prov: STUART DENNIS M.D. 03/29/17 Referrals: NON PHYSICIAN (PCP) STUART DENNIS M.D. Mar 29, 2017 14:59
[2017-03-29 15:03] LABS: ANION GAP 7 mmol/L (5-15); CALCIUM 10.5 MG/DL (8.5-10.1); CARBON DIOXIDE 27 MMOL/L (21-32); CHLORIDE 105 MMOL/L (98-107); CREATININE 2.2 MG/DL (0.55-1.30); GLOMERULAR FILTRATION RATE 36.8 mL/min (>60); SODIUM 139 MMOL/L (136-145)
[2017-03-29 15:07] LABS: ALANINE AMINOTRANSFERASE 23 U/L (12-78); ASPARTATE AMINO TRANSFERASE 24 U/L (15-37); LIPASE 199 U/L (73-393); TOTAL PROTEIN 7.8 G/DL (6.4-8.2)
[2017-03-29 15:16] LABS: BACTERIA,URINE FEW /HPF; RBC,URINE 0-2 /HPF (0 - 0); WBC,URINE 0-2 /HPF (0 - 0)
--- NOTE | 2017-03-29 16:13 | Diagnostic Imaging Report ---
Indication: Abdominal pain x1 week, 10/03, sharp, over the epigastric region radiating to both legs. History of hiatal hernia Technique: Spiral acquisitions obtained through the abdomen and pelvis. No oral contrast utilized, per emergency room physician request No IV contrast utilized, per emergency room physician request.. Multiplanar reconstructions were generated. Total dose length product 765 mGycm. CTDIvol(s) 15 mGy. Dose reduction achieved using automated exposure control Comparison: None Findings: Lack of IV contrast limits assessment of the GI tract. There are small colonic diverticula. No evidence of diverticulitis. The appendix is normal. Small bowel loops are diffusely mildly prominent, gas-filled, but no joana distention demonstrated. No free or loculated intraperitoneal air or fluid is demonstrated. Distal esophagus, stomach, duodenum are unremarkable. There is mild diastasis of the rectus abdominis tendon but no joana anterior abdominal wall herniation. There is borderline herniation of a small amount of fat into the left renal canal The lack of IV contrast limits assessment of the solid organs. The pancreatic head and uncinate process are somewhat prominent, and there is questionable slight infiltration of the fat in this area. There are questionable tiny gallstones. No definite biliary ductal dilatation or common bile duct calculi. The liver is grossly unremarkable. The spleen is grossly unremarkable. The adrenals are unremarkable. Calcification in the right renal hilum is probably arterial. No renal or ureteral calculi, hydronephrosis, or hydroureter. There is a prominent right extrarenal pelvis. The bladder is somewhat thick walled. The prostate is somewhat enlarged, measuring 4.8 a 4.4 x 3.1 cm. The visualized lung bases demonstrate scarring in the medial right lower lobe, are otherwise clear. The bones demonstrate mild degenerative spondylosis changes. Impression: Limited assessment of the GI tract due to lack of oral contrast. Limited assessment of the solid organs due to lack of IV contrast Slightly prominent pancreatic head and uncinate process, equivocal slight infiltration of the adjacent peripancreatic fat, if real could indicate early acute pancreatitis changes. Correlate with laboratory findings Thickwalled bladder, could indicate cystitis or be on the basis of chronic bladder outlet obstruction No acute process otherwise Equivocal cholelithiasis Prostatomegaly Other findings as noted, including medial right lower lobe pulmonary scarring, degenerative spondylosis, borderline small fat-containing left inguinal hernia The CT scanner at [facility] is accredited by the [employer] and the scans are performed using protocols designed to limit radiation exposure to as low as reasonably achievable to attain images of sufficient resolution adequate for diagnostic evaluation.
[2017-03-29] MEDS ORDERED: TRAMADOL HCL50 MG ORAL (16:25)
[2017-03-29] MEDS ORDERED: PROMETHAZINE-C118 M1 ORAL (16:25)
[2017-03-29 16:40] VITALS: BP 135/73
== END 2017-03-29 16:40 | disposition home or self-care (01) ==
LOC: EMR 14:30
DX: E11.22 Type 2 diabetes mellitus with diabetic chronic kidney disease (principal); I12.9 Hypertensive chronic kidney disease with stage 1 through stage 4 chronic kidney disease, or unspecified chronic kidney disease; N18.9 Chronic kidney disease, unspecified; R10.13 Epigastric pain; E78.00 Pure hypercholesterolemia, unspecified; Z88.1 Allergy status to other antibiotic agents
CPT/HCPCS: 36415; 74176; 80053; 81003; 83690; 84484; 85025; 96360; 96361; 99284

== ENCOUNTER 2017-04-12 09:21 | Emergency (ER) | payer MEDICARE, OTHER ==
[~2017-04-12] VITALS: Ht 182.9 cm; Wt 95.3 kg
[~2017-04-12 09:21] MED LIST changes: +TRAMADOL HCL50 MG ORAL
[2017-04-12 09:29] VITALS: BP 133/73
[2017-04-12] MEDS ORDERED: Acetaminophen 500mg (ES) tab ORAL ONE (10:15)
--- NOTE | 2017-04-12 10:43 | Diagnostic Imaging Report ---
Indication: Headache Technique: Contiguous 5 mm thick transaxial imaging of the head obtained in a Siemens Sensation [address] scanner. Soft tissue and bone windows generated. Automatic Exposure Control was utilized. Total Dose length Product (DLP): 1397.[address] Dose Index Volume (CTDIvol): 70.38 mGy Comparison: none Findings: The size and configuration of the cortical sulci, basal cisterns, and ventricles are within normal limits for age. There is no mass effect, midline shift, or edema identified. There is no evidence of acute hemorrhage or abnormal intra-axial or extra-axial fluid collections. The bones and soft tissues are unremarkable. Impression: No mass effect, edema or acute bleed. The CT scanner at [facility] is accredited by the [employer] and the scans are performed using dose optimization techniques as appropriate to a performed exam including Automatic Exposure control.
[2017-04-12] MEDS ORDERED: TYLENOL EXTRA500 MG ORAL (10:56)
[2017-04-12 10:58] VITALS: BP 133/73
--- NOTE | 2017-04-12 14:00 | Emergency Room Report ---
History of Present Illness General Chief Complaint: Pain Source: Patient, Medical Record Present Illness HPI 61-year-old male presents ED complaining of headache and left foot pain. Started 3 days ago. Denies trauma. Headache as 5 out of 10, throbbing, behind the right eye. Notes some photophobia. Denies any blurry vision or nausea. States unrelieved with [id number] pain medications. Denies any neck stiffness. Also complaining of left heel pain, sharp, 7/10, nonradiating, worse with ambulating. No other aggravating relieving factors. Denies any other associated symptoms Allergies: Coded Allergies: TETRACYCLINES (Unverified Allergy, Unknown, 08/23/14) Patient History Past Medical History: DM, HTN Past Surgical History: none Pertinent Family History: none Social History: Denies: smoking, alcohol use, drug use Immunizations: UTD Reviewed Nursing Documentation: PMH: Agreed, PSxH: Agreed Nursing Documentation-PMH Past Medical History: No History, Except For Hx Cardiac Problems: No - high cholesterol Hx Hypertension: Yes Hx Diabetes: Yes Hx Dialysis: No - Chronic kidney disease Review of Systems All Other Systems: negative except mentioned in HPI Physical Exam Vital Signs Date Time Temp Pulse Resp B/P (MAP) Pulse Ox O2 Delivery O2 Flow Rate FiO2 04/12/17 09:29 97.5 83 16 133/73 94 Room Air Sp02 EP Interpretation: reviewed, normal General Appearance: no apparent distress, alert, GCS 15, non-toxic Head: normocephalic, atraumatic Eyes: bilateral eye normal inspection, bilateral eye PERRL, bilateral eye EOMI ENT: hearing grossly normal, normal pharynx, no angioedema, normal voice Neck: full range of motion, supple, no meningismus, supple/symm/no masses Respiratory: chest non-tender, lungs clear, normal breath sounds, speaking full sentences Cardiovascular #1: regular rate, rhythm, no edema Cardiovascular #2: 2+ carotid (R), 2+ carotid (L), 2+ radial (R), 2+ radial (L) , 2+ dorsalis pedis (R), 2+ dorsalis pedis (L) Gastrointestinal: normal bowel sounds, non tender, soft, non-distended, no guarding, no rebound Rectal: deferred Genitourinary: normal inspection, no CVA tenderness Musculoskeletal: back normal, gait/station normal, normal range of motion, tender - L heel Neurologic: alert, oriented x3, responsive, motor strength/tone normal, sensory intact, speech normal Psychiatric: judgement/insight normal, memory normal, mood/affect normal, no suicidal/homicidal ideation Reflexes: 3+ bicep (R), 3+ bicep (L), 3+ tricep (R), 3+ tricep (L), 3+ knee (R) , 3+ knee (L) Skin: normal color, no rash, warm/dry, well hydrated Lymphatic: no adenopathy Medical Decision Making Diagnostic Impression: Primary Impression: Heel pain Qualified Codes: M79.672 - Pain in left foot Additional Impression: Headache Qualified Codes: R51 - Headache ER Course 61-year-old male presents ED complaining of headache, left heel pain Differential-migraine, intracranial bleed, fracture, contusion Patient placed on stretcher. After initial history and physical I ordered CT head. Left heel has some mild tenderness to palpation. No bruising or crepitus. No deformity. Likely plantar fasciitis. recommend ice, NSAIDs, rest CT head unremarkable Diagnosis - heel pain, headache Stable and discharged to home with prescription for Tylenol. Ice, rest. Followup with PMD. Return to ED if symptoms recur or worsen CT/MRI/US Diagnostic Results CT/MRI/US Diagnostic Results : Imaging Test Ordered: CT Head Impression no acute process Last Vital Signs Date Time Temp Pulse Resp B/P (MAP) Pulse Ox O2 Delivery O2 Flow Rate FiO2 04/12/17 10:58 97.5 83 16 133/73 94 Room Air Status: improved Disposition: HOME, SELF-CARE Condition: Stable Scripts Acetaminophen* (TYLENOL EXTRA STRENGTH*) 500 Mg Tablet 500 MG ORAL Q8H Y for Prn Headache/Temp > 101, #30 TAB 0 Refills Prov: STUART DENNIS M.D. 04/12/17 Patient Instructions: Plantar Fasciitis With [facility] STUART DENNIS M.D. Apr 12, 2017 14:00
== END 2017-04-12 10:58 | disposition home or self-care (01) ==
LOC: EMR 10:30
DX: M79.672 Pain in left foot (principal); R51 Headache; I10 Essential (primary) hypertension; E11.9 Type 2 diabetes mellitus without complications; Z88.1 Allergy status to other antibiotic agents
CPT/HCPCS: 70450; 99284

== ENCOUNTER 2017-11-06 04:37 | Emergency (ER) | payer MEDICARE, OTHER ==
[~2017-11-06] VITALS: Ht 182.9 cm; Wt 97.5 kg
[~2017-11-06 04:37] MED LIST changes: +TYLENOL EXTRA500 MG ORAL
[2017-11-06 05:00] VITALS: BP 118/55
[2017-11-06] MEDS ORDERED: Nitroglycerin Subl 0.4mg tab SL PRN (05:00)
[2017-11-06] MEDS ORDERED: Aspirin Baby 81mg ORAL ONE (05:00)
--- NOTE | 2017-11-06 05:00 | Emergency Room Report ---
History of Present Illness General Chief Complaint: Chest Pain Source: Patient Present Illness HPI Is a 62-year-old male with a history of diabetes, hypertension and hyperlipidemia. He presents with chief complaint of chest pain. This been an ongoing problem since yesterday. Sharp in nature. Left-sided. No radiation. No nausea no vomiting. Said he never had this pain before. Pain is 7 out of 10. Nothing made it better. Nothing made it worse. No radiation. No diaphoresis. No exertional component. Said that he is not taking any pain medication at home. Allergies: Coded Allergies: TETRACYCLINES (Unverified Allergy, Unknown, 08/23/14) Patient History Past Medical History: see triage record, old chart reviewed, DM, HTN Past Surgical History: other Pertinent Family History: none Social History: Denies: smoking, drug use Immunizations: other Reviewed Nursing Documentation: PMH: Agreed; PSxH: Agreed Nursing Documentation-PMH Hx Cardiac Problems: No - high cholesterol Hx Hypertension: Yes Hx Diabetes: Yes Hx Dialysis: No - Chronic kidney disease Review of Systems Eye: Denies: eye pain, blurred vision ENT: Denies: ear pain, nose congestion, throat swelling Respiratory: Denies: cough, shortness of breath Cardiovascular: Reports: chest pain; Denies: palpitations Gastrointestinal: Denies: abdominal pain, diarrhea, nausea, vomiting Musculoskeletal: Denies: back pain, joint pain Skin: Denies: rash Neurological: Denies: headache, numbness Endocrine: Denies: increased thirst, increased urine Hematologic/Lymphatic: Denies: easy bruising All Other Systems: negative except mentioned in HPI Physical Exam Vital Signs Date Time Temp Pulse Resp B/P (MAP) Pulse Ox O2 Delivery O2 Flow Rate FiO2 11/06/17 04:46 98.2 50 17 117/52 98 Room Air 98.2 vitals normal Sp02 EP Interpretation: reviewed, normal General Appearance: well appearing, no apparent distress, alert Head: normocephalic, atraumatic Eyes: bilateral eye PERRL, bilateral eye EOMI ENT: hearing grossly normal, normal pharynx Neck: full range of motion, supple, no meningismus Respiratory: chest non-tender, lungs clear, normal breath sounds Cardiovascular #1: regular rate, rhythm, no murmur Gastrointestinal: normal bowel sounds, non tender, no mass, no organomegaly, no bruit, non-distended Musculoskeletal: back normal, gait/station normal, normal range of motion Psychiatric: mood/affect normal Skin: warm/dry Medical Decision Making Diagnostic Impression: Primary Impression: Chest pain Qualified Codes: R07.9 - Chest pain, unspecified Additional Impressions: Cocaine abuse Opiate dependence ER Course Patient presents with atypical chest pain. This is a recurrent issue. He's been here several times for the same thing. He said that he is not taking any pain medication but the [facility] system stated otherwise. He is taking [place] 10 mg #120 and Valium 5 mg #30 monthly. His pain been ongoing for 2 days. If troponin is negative, can be discharged home. previous urine drug screen also positive for cocaine. He is sleeping comfortably here. No evidence of ACS, PE, dissection to name a few. Patient said that he has an appointment with Dr. Cecil Harrington on Wednesday. Told patient to keep that appointment and he may need a referral to see a windscreen fitter for stress test if continue with pain. EKG Diagnostic Results Rate: normal, bradycardiac Rhythm: NSR ST Segments: no acute changes Rhythm Strip Diag. Results Rhythm Strip Time: 04:59 EP Interpretation: yes Rate: 53 Rhythm: NSR, no PVC's, no ectopy Chest X-Ray Diagnostic Results Chest X-Ray Diagnostic Results : Chest X-Ray Ordered: Yes # of Views/Limited/Complete: 1 View Indication: Chest Pain EP Interpretation: Yes Interpretation: no consolidation, no effusion, no pneumothorax, no acute cardiopulmonary disease Impression: No acute disease Electronically Signed by: Ajay Sharif MD Last Vital Signs Date Time Temp Pulse Resp B/P (MAP) Pulse Ox O2 Delivery O2 Flow Rate FiO2 11/06/17 04:46 98.2 50 17 117/52 98 Room Air 98.2 Status: improved Disposition: HOME, SELF-CARE Condition: Stable Patient Instructions: Nonspecific Chest Pain Additional Instructions: Stop using drugs. Follow-up with your doctor in 2-3 days. You may need a stress test if continue with pain. Return if symptom worsen. AJAY SHARIF M.D. Nov 06, 2017 05:00
[2017-11-06 05:12] VITALS: BP 122/62
[2017-11-06 05:14] LABS: BASOPHILS % (AUTO) 1.1 % (0.0-2.0); HEMATOCRIT 35.3 % (42.0-52.0); HEMOGLOBIN 11.7 G/DL (14.2-18.0); LYMPHOCYTES % (AUTO) 28.7 % (20.0-45.0); MEAN CORPUSCULAR VOLUME 84 FL (80-99); MONOCYTES % (AUTO) 11.3 % (1.0-10.0); PLATELET COUNT 197 K/UL (150-450); RED BLOOD COUNT 4.18 M/UL (4.70-6.10); RED CELL DISTRIBUTION WIDTH 13.4 % (11.6-14.8); WHITE BLOOD COUNT 6.6 K/UL (4.8-10.8)
[2017-11-06 05:49] LABS: APPEARANCE,URINE CLEAR; BILIRUBIN, URINE NEGATIVE (NEGATIVE); COLOR,URINE PALE YELLOW; GLUCOSE, URINE (UA) NEGATIVE (NEGATIVE); KETONES,URINE NEGATIVE (NEGATIVE); LEUKOCYTE ESTERASE ,URINE NEGATIVE (NEGATIVE); NITRITE,URINE NEGATIVE (NEGATIVE); PH,URINE 5 (4.5-8.0); PROTEIN,URINE NEGATIVE (NEGATIVE); UROBILINOGEN,URINE NORMAL MG/DL (0.0-1.0)
[2017-11-06 05:50] VITALS: BP 106/56
[2017-11-06 06:43] VITALS: BP 112/50
[2017-11-06 06:53] LABS: ALANINE AMINOTRANSFERASE 24 U/L (12-78); ALBUMIN 3.6 G/DL (3.4-5.0); ALKALINE PHOSPHATASE 60 U/L (46-116); ANION GAP 12 mmol/L (5-15); ASPARTATE AMINO TRANSFERASE 30 U/L (15-37); BILIRUBIN,TOTAL 0.6 MG/DL (0.2-1.0); BLOOD UREA NITROGEN 38 mg/dL (7-18); CALCIUM 9.2 MG/DL (8.5-10.1); CARBON DIOXIDE 21 MMOL/L (21-32); CHLORIDE 103 MMOL/L (98-107); CKMB 4.4 NG/ML (0.0-3.6); CREATINE KINASE 536 U/L (26-308); CREATININE 2.7 MG/DL (0.55-1.30); POTASSIUM 3.7 MMOL/L (3.5-5.1); SODIUM 136 MMOL/L (136-145)
[2017-11-06 06:59] VITALS: BP 112/50
--- NOTE | 2017-11-06 07:34 | Diagnostic Imaging Report ---
EXAM: XR Chest, 1 View CLINICAL HISTORY: Chest pain TECHNIQUE: Frontal view of the chest. COMPARISON: Chest x-ray 02/01/17. FINDINGS: Lungs: Low lung volumes. By basilar atelectasis without focal consolidation. Pleural space: No pleural effusion or pneumothorax. Heart: Cardiac silhouette at the upper limits of normal in size versus mildly enlarged allowing for frontal technique. Mediastinum: Unremarkable. Bones/joints: Unremarkable. IMPRESSION: 1. Cardiac silhouette upper normal in size versus mildly enlarged allowing for frontal technique. 2. Low lung volumes and bibasilar atelectasis without focal consolidation, pleural effusion, or pneumothorax.
--- NOTE | 2017-11-12 16:50 | Cardiology Report ---
APPROVED REPORT EKG Measurement Heart [id number] Sinus bradycardia Minimal voltage criteria for LVH, may be normal variant Borderline ECG
== END 2017-11-06 07:00 | disposition home or self-care (01) ==
LOC: EMR 04:59
DX: R07.89 Other chest pain (principal); F14.10 Cocaine abuse, uncomplicated; F11.20 Opioid dependence, uncomplicated; E11.9 Type 2 diabetes mellitus without complications; I12.9 Hypertensive chronic kidney disease with stage 1 through stage 4 chronic kidney disease, or unspecified chronic kidney disease; N18.9 Chronic kidney disease, unspecified
CPT/HCPCS: 36415; 71045; 80053; 80307; 81003; 82550; 82553; 84484; 85025; 93005; 99283

== ENCOUNTER 2018-05-17 10:11 | Emergency (ER) | payer MEDICARE, OTHER ==
[~2018-05-17] VITALS: Ht 182.9 cm; Wt 56.7 kg
[~2018-05-17 10:11] MED LIST changes: +ADULT WAL-100 MG/5 M ORAL; +GLIPIZIDE10 MG PO
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
[2018-05-17 10:28] VITALS: BP 115/75
[2018-05-17] MEDS ORDERED: Ketorolac 60mg Inj IM ONE (10:30)
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
--- NOTE | 2018-05-17 10:45 | NUR ---
ED Nurse Note: Spoke to Dax from radiology to notify about xray orders. Awaiting for arrival.
--- NOTE | 2018-05-17 10:52 | NUR ---
ED Nurse Note: Pt went down to radiology to get xray.
[2018-05-17] MEDS ORDERED: IBUPROFEN600 MG ORAL (11:28)
[2018-05-17 11:37] VITALS: BP 126/64
--- NOTE | 2018-05-17 11:39 | NUR ---
ED Nurse Note: Patient is being discharged from medical care. D/C instruction and prescriptions given and all questions were answered. Ambulating out with steady gait. No facial grimacing or guarding noted.
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
== END 2018-05-17 11:40 | disposition home or self-care (01) ==
LOC: EMR 11:30
DX: S40.011A Contusion of right shoulder, initial encounter (principal); S80.11XA Contusion of right lower leg, initial encounter; R07.9 Chest pain, unspecified; V28.0XXA Motorcycle driver injured in noncollision transport accident in nontraffic accident, initial encounter; Y92.414 Local residential or business street as the place of occurrence of the external cause; E11.22 Type 2 diabetes mellitus with diabetic chronic kidney disease; I12.9 Hypertensive chronic kidney disease with stage 1 through stage 4 chronic kidney disease, or unspecified chronic kidney disease; N18.9 Chronic kidney disease, unspecified; Z88.1 Allergy status to other antibiotic agents
CPT/HCPCS: 71045; 96372; 99283

== ENCOUNTER 2018-06-13 11:04 | Emergency (ER) | payer MEDICARE, OTHER ==
[~2018-06-13] VITALS: Ht 182.9 cm; Wt 99.8 kg
[~2018-06-13 11:04] MED LIST changes: +IBUPROFEN600 MG ORAL
--- NOTE | 2018-06-13 11:43 | NUR ---
ED Nurse Note: PT WALKED IN TO ER TODAY FROM HOME. AOX4. PT C/O PERSISTENT PRODUCTIVE COUGH X 1 MONTH. PT DENIES FEVER OR CONGESTION. LUNG SOUNDS CLEAR IN ALL LOBES. NO SIGNS OF RESPIRATORY DISTRESS OR RETRACTIONS NOTED. RR18 @ 98% O2 SATURATION.
[2018-06-13 11:45] VITALS: BP 120/68
[2018-06-13] MEDS ORDERED: TESSALON PERLE100 MG ORAL (12:09)
[2018-06-13] MEDS ORDERED: ZITHROMAX250 MG ORAL (12:09)
--- NOTE | 2018-06-13 12:09 | Emergency Room Report ---
History of Present Illness General Chief Complaint: Upper Respiratory Illness Source: Patient Present Illness HPI 62-year-old male patient presents the ER complaining of cough for the past month. Previously seen here in the ER, states was given cough medication is not resolved symptoms. Denies chest pain or shortness of breath. Denies history of asthma. Denies recent travel. States has been taking guaifenesin without relief of symptoms. Denies fever. Reports sore throat during this time. Denies earache. Denies other aggravating or relieving factors. Denies smoking cigarettes, admits to intermittent marijuana use.. Allergies: Coded Allergies: TETRACYCLINES (Unverified Allergy, Unknown, 05/17/18) Patient History Past Medical History: see triage record Reviewed Nursing Documentation: PMH: Agreed; PSxH: Agreed Nursing Documentation-PMH Past Medical History: No History, Except For Hx Cardiac Problems: No - high cholesterol Hx Hypertension: Yes Hx Diabetes: Yes Hx Dialysis: No - Chronic kidney disease Review of Systems All Other Systems: negative except mentioned in HPI Physical Exam Vital Signs Date Time Temp Pulse Resp B/P (MAP) Pulse Ox O2 Delivery O2 Flow Rate FiO2 06/13/18 11:08 98.4 78 20 117/61 96 Room Air Sp02 EP Interpretation: reviewed, normal General Appearance: well appearing, no apparent distress, alert, GCS 15, non- toxic Head: normocephalic, atraumatic Eyes: bilateral eye normal inspection, bilateral eye PERRL ENT: hearing grossly normal, normal pharynx, no angioedema, normal voice, uvula midline, moist mucus membranes Neck: full range of motion Respiratory: lungs clear, normal breath sounds, no rhonchi, no respiratory distress, no accessory muscle use, no wheezing, speaking full sentences Cardiovascular #1: regular rate, rhythm, no edema Musculoskeletal: back normal, digits/nails normal, gait/station normal, normal range of motion, non-tender, no calf tenderness, Olman's Sign negative Neurologic: alert, oriented x3, responsive, motor strength/tone normal, sensory intact Psychiatric: mood/affect normal Skin: no rash Medical Decision Making PA Attestation Dr. Vora is my supervising Physician whom patient management has been discussed with. Diagnostic Impression: Primary Impression: Atypical pneumonia ER Course Pt presents to ED c/o cough. DDX considered but are not limited to influenza, viral URI, pneumonia, strep throat, rhinitis, sinusitis, bronchitis. Denies chest pain, shortness of breath, does not require breathing treatment or cardiac workup at this time. VITAL SIGNS are WNL, patient is afebrile. ER COURSE: Lungs clear to auscultation, no wheezes, rhonci or rales. patient afebrile. Does not require chest x-ray at this time, patient afebrile however due to length of symptoms and cough, will treat patient for possible atypical pneumonia with antibiotics. no tonsillar exudates, no pharyngeal erythema, history of cough, no fever, no stridor, uvula midline, low suspicion for peritonsillar abscess. Symptomatic treatment. drink plenty of fluids. Salt water gargles for sore throat. Followup with PCP for further treatment and/or referral as needed. ER precautions given. Will provide patient with Rx for cough medication. DISCHARGE: At this time pt is stable for d/c to home. Patient is resting comfortably, in no acute distress, nontoxic appearing. Patient to take medications as instructed Will provide with patient care instructions and any necessary prescriptions. Care plan and follow-up instructions provided. Patient instructed to follow-up with primary care provider in 3 - 5 days. Patient questions asked and answered. Patient reports understanding and agreement to treatment plan. ER precautions given. Patient instructed to return to ER immediately for any new or worsening of symptoms including but not limited to increasing SOB, persistent fever, intractable vomiting. - Please note that this Emergency Department Report was dictated using [employer] analyst technology software, occasionally this can lead to erroneous entry secondary to interpretation by the dictation equipment. Last Vital Signs Date Time Temp Pulse Resp B/P (MAP) Pulse Ox O2 Delivery O2 Flow Rate FiO2 06/13/18 11:45 98.2 74 18 120/68 98 Room Air Disposition: HOME, SELF-CARE Condition: Stable Scripts Azithromycin* (ZITHROMAX*) 250 Mg Tablet 250 MG ORAL DAILY, #6 TAB 0 Refills Take two tables once daily for 1 day, then one tablet once daily for 4 days. Prov: Sanchez Quarles P.A. 06/13/18 Benzonatate* (TESSALON PERLE*) 100 Mg Capsule 100 MG ORAL THREE TIMES A DAY, #20 PERLE Prov: Sanchez Quarles P.A. 2/18/19 Patient Instructions: Community-Acquired Pneumonia, Adult, [id number] Additional Instructions: Followup with primary care provider in 3 -5 days. Discussed referral to pulmonology specialist. Drink plenty fluids. Take medications as directed. Patient questions asked and answered. ER precautions given, patient instructed to return to ER immediately for any new or worsening of symptoms. Sanchez Quarles Jun 13, 2018 12:09
[2018-06-13 12:18] VITALS: BP 124/72
--- NOTE | 2018-06-13 12:19 | NUR ---
ED Nurse Note: PT SITTING PEACEFULLY IN CHAIR IN NAD. AOX4. PRESCRIPTIONS AND DISCHARGE PAPERWORK EXPLAINED TO PT. PT VERBALIZES UNDERSTANDING AND ALL QUESTIONS ANSWERED. PRESCRIPTIONS AND DISCHARGE PAPERWORK GIVEN TO PT AND ID WRISTBAND REMOVED. PT WALKED OUT OF ER WITH STEADY GAIT.
== END 2018-06-13 12:15 | disposition home or self-care (01) ==
LOC: EMR 12:00
DX: J18.9 Pneumonia, unspecified organism (principal); I12.9 Hypertensive chronic kidney disease with stage 1 through stage 4 chronic kidney disease, or unspecified chronic kidney disease; E11.22 Type 2 diabetes mellitus with diabetic chronic kidney disease; N18.9 Chronic kidney disease, unspecified; Z88.1 Allergy status to other antibiotic agents
CPT/HCPCS: 99282

== ENCOUNTER 2018-07-18 09:15 | Emergency (ER) | payer MEDICARE, OTHER ==
[~2018-07-18] VITALS: Ht 188 cm; Wt 99.8 kg
[~2018-07-18 09:15] MED LIST changes: +TESSALON PERLE100 MG ORAL; +ZITHROMAX250 MG ORAL
[2018-07-18 09:32] VITALS: BP 128/57
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
--- NOTE | 2018-07-18 10:40 | NUR ---
ED Nurse Note:blood sent to labs, pt. had x-rays done
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
[2018-07-18 11:25] LABS: ANION GAP 14 mmol/L (5-15); BLOOD UREA NITROGEN 36 mg/dL (7-18); CALCIUM 10.1 MG/DL (8.5-10.1); CARBON DIOXIDE 23 MMOL/L (21-32); CHLORIDE 104 MMOL/L (98-107); CREATININE 2.3 MG/DL (0.55-1.30); POTASSIUM 3.9 MMOL/L (3.5-5.1); SODIUM 141 MMOL/L (136-145)
[2018-07-18 11:30] LABS: BASOPHILS % (AUTO) 1.8 % (0.0-2.0); EOSINOPHILS % (AUTO) 3.3 % (0.0-3.0); HEMATOCRIT 36.2 % (42.0-52.0); LYMPHOCYTES % (AUTO) 26.9 % (20.0-45.0); MEAN CORPUSCULAR VOLUME 84 FL (80-99); PLATELET COUNT 194 K/UL (150-450); RED BLOOD COUNT 4.32 M/UL (4.70-6.10); RED CELL DISTRIBUTION WIDTH 14.2 % (11.6-14.8); WHITE BLOOD COUNT 6.5 K/UL (4.8-10.8)
[2018-07-18 11:31] LABS: ALANINE AMINOTRANSFERASE 33 U/L (12-78); ALBUMIN 3.9 G/DL (3.4-5.0); ALKALINE PHOSPHATASE 58 U/L (46-116); ASPARTATE AMINO TRANSFERASE 31 U/L (15-37); BILIRUBIN,TOTAL 0.9 MG/DL (0.2-1.0)
[2018-07-18] MEDS ORDERED: MOBIC7.5 MG ORAL (11:48)
[2018-07-18 12:01] VITALS: BP 132/57
--- NOTE | 2018-07-18 12:03 | NUR ---
ER DISCHARGE NOTE: Patient is cleared to be discharged per ERMD, pt is aox4, on room air, with stable vital signs. pt was given dc and prescription instructions, pt was able to verbalize understanding, pt id band removed pt is able to ambulate with steady gait. pt took all belongings.
== END 2018-07-18 12:04 | disposition home or self-care (01) ==
LOC: EMR 09:40
DX: M25.511 Pain in right shoulder (principal); M25.561 Pain in right knee; I12.9 Hypertensive chronic kidney disease with stage 1 through stage 4 chronic kidney disease, or unspecified chronic kidney disease; E11.22 Type 2 diabetes mellitus with diabetic chronic kidney disease; N18.9 Chronic kidney disease, unspecified; Z88.1 Allergy status to other antibiotic agents
CPT/HCPCS: 36415; 80053; 85025; 99283

== ENCOUNTER 2019-06-19 14:30 | Emergency (ER) | payer MEDICARE, OTHER ==
[~2019-06-19] VITALS: Ht 185.4 cm; Wt 99.8 kg
[~2019-06-19 14:30] MED LIST changes: +GABAPENTIN400 MG ORAL; +MELOXICAM7.5 MG PO; +MOBIC7.5 MG ORAL
[2019-06-19 15:24] VITALS: BP 103/45
[2019-06-19 15:25] VITALS: BP 124/57
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
[2019-06-19] MEDS ORDERED: Ketorolac 30mg Inj IM ONE (15:45)
[2019-06-19] MEDS ORDERED: Methocarbamol 750mg tab ORAL ONE (15:45)
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
[2019-06-19] MEDS ORDERED: ROBAXIN-500MG ORAL (16:22)
[2019-06-19] MEDS ORDERED: LIDODERM700 M1 TOPIC (16:22)
[2019-06-19] MEDS ORDERED: IBUPROFEN600 MG ORAL (16:22)
[2019-06-19 16:33] VITALS: BP 127/52
--- NOTE | 2019-06-19 16:33 | NUR ---
ER DISCHARGE NOTE: Patient is cleared to be discharged per ERMD, pt is aox4, on room air, with stable vital signs. pt was given dc and prescription instructions, pt was able to verbalize understanding, pt id band removed. pt is able to ambulate with steady gait. pt took all belongings.
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
== END 2019-06-19 16:33 | disposition home or self-care (01) ==
LOC: EMR 16:20
DX: S16.1XXA Strain of muscle, fascia and tendon at neck level, initial encounter (principal); V49.9XXA Car occupant (driver) (passenger) injured in unspecified traffic accident, initial encounter; Y92.9 Unspecified place or not applicable; I12.9 Hypertensive chronic kidney disease with stage 1 through stage 4 chronic kidney disease, or unspecified chronic kidney disease; E11.22 Type 2 diabetes mellitus with diabetic chronic kidney disease; N18.9 Chronic kidney disease, unspecified; E78.00 Pure hypercholesterolemia, unspecified
CPT/HCPCS: 72040; 96372; 99283; J1885

== ENCOUNTER 2020-03-27 14:13 | Emergency (ER) | payer MEDICARE, OTHER ==
[~2020-03-27] VITALS: Ht 182.9 cm; Wt 86.2 kg
[~2020-03-27 14:13] MED LIST changes: +LIDODERM700 M1 TOPIC; +ROBAXIN-500MG ORAL
--- NOTE | 2020-03-27 14:48 | Emergency Room Report ---
History of Present Illness General Chief Complaint: Abnormal Labs Source: Patient Present Illness HPI Disclaimer: Please note that this report is being documented using [employer] technology. This can lead to erroneous entry secondary to incorrect interpretation by the dictating instrument. HPI: 64-year-old male history of diabetes presents for elevated blood sugar. States his sugars at home have been greater than 300 for the past week. Has been on glipizide for many years but started Farxiga 2 weeks ago by his PMD. Denies headache, vision changes, fever, chills, cough, shortness of breath, abdominal pain, nausea, vomiting, diarrhea. Reports increased urination. No other changes in health. Unable to see his PMD this week so came to the ER. 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 EOMI. Cardiovascular: RRR. S1 and S2 normal. No murmur appreciated Resp: Normal work of breathing. No cough, wheezing or crackles appreciated Abdomen: Abdomen is soft, nondistended. Nontender Skin: Intact. No abrasions, laceration or rash over the exposed skin MSK: Normal tone and bulk. Moving all extremities. No obvious deformity. Neuro: Awake and alert. Mentating appropriately. Medical Decision Making Diagnostic Impression: Primary Impression: CKD (chronic kidney disease) Additional Impression: Hyperglycemia ER Course 64-year-old male presents for evaluation of hyperglycemia. Recently started Farxiga 2 weeks ago. Accu-Chek on arrival shows elevated blood sugar greater than 300 and patient was treated with insulin. BMP shows persistent but improving glucose levels but no evidence of DKA. No gap. BUN and creatinine a re elevated consistent with renal insufficiency. The patient states he has a history of chronic renal disease and is following up with his PMD for this. Appears to be stable. Patient stable for outpatient follow-up. Will discuss with his PMD his glycemic control medication regimen and adjust as needed. Instructed to return with new or worsening symptoms. Laboratory Tests Test 03/27/20 15:00 03/27/20 15:03 03/27/20 15:10 03/27/20 15:57 POC Whole Blood Glucose 58 MG/DL (74-106) L 372 MG/DL (74-106) H 274 MG/DL (74-106) H Sodium Level 133 MMOL/L (136-145) L Potassium Level 4.1 MMOL/L (3.5-5.1) Chloride Level 96 MMOL/L (98-107) L Carbon Dioxide Level 26 MMOL/L (21-32) Anion Gap 11 mmol/L (5-15) Blood Urea Nitrogen 48 mg/dL (7-18) H Creatinine 4.1 MG/DL (0.55-1.30) H Estimated Glomerular Filtration Rate 17.8 mL/min (>60) Glucose Level 391 MG/DL (74-106) H Calcium Level 9.9 MG/DL (8.5-10.1) Last Vital Signs Date Time Temp Pulse Resp B/P (MAP) Pulse Ox O2 Delivery O2 Flow Rate FiO2 03/27/20 14:37 97.5 87 19 113/77 (89) 98 Room Air Disposition: HOME, SELF-CARE Condition: Stable Stepan Burton MD Mar 27, 2020 14:48
[2020-03-27 14:50] VITALS: BP 113/77
[2020-03-27] MEDS ORDERED: Insulin Human Regular 100units/ml 3ml SUBQ ONE (15:15)
--- NOTE | 2020-03-27 15:35 | NUR ---
ED Nurse Note: PATIENT WALKED IN TO ER FROM HOME STATING HIS SUGAR THIS MORNING IS 350. PT IS A/OX4, NAD NOTED, ON ROOM AIR, VSS, DENIES PAIN AT THIS TIME. PERIPHERAL IV ACCESS INSERTED, BLOOD SENT TO LAB, PT STATED "I CANNOT URINATE RIGHT NOW".
[2020-03-27 16:36] LABS: CALCIUM 9.9 MG/DL (8.5-10.1); CREATININE 4.1 MG/DL (0.55-1.30); POTASSIUM 4.1 MMOL/L (3.5-5.1)
[2020-03-27 16:54] VITALS: BP 136/74
--- NOTE | 2020-03-27 16:56 | NUR ---
ED Nurse Note: Pt cleared by health care Provider for discharge. DC instructionS was given and explained to pt and verbalized understanding of teachings. All medical deviecs such as ID band and iv access removed. Pt is AAO x4, ambulatory and left with all personal belongings.
== END 2020-03-27 16:57 | disposition home or self-care (01) ==
LOC: EMR 14:40
DX: E11.22 Type 2 diabetes mellitus with diabetic chronic kidney disease (principal); I12.9 Hypertensive chronic kidney disease with stage 1 through stage 4 chronic kidney disease, or unspecified chronic kidney disease; N18.9 Chronic kidney disease, unspecified; E78.00 Pure hypercholesterolemia, unspecified; Z79.899 Other long term (current) drug therapy; Z88.1 Allergy status to other antibiotic agents
CPT/HCPCS: 36415; 80048; 82962; 99283; J1815

== ENCOUNTER 2020-04-01 07:54 | Emergency (ER) | payer MEDICARE, OTHER ==
[~2020-04-01] VITALS: Ht 182.9 cm; Wt 86.2 kg
--- NOTE | 2020-04-01 08:09 | Emergency Room Report ---
History of Present Illness General Chief Complaint: General Complaint Source: Patient Present Illness HPI Disclaimer: Please note that this report is being documented using [employer] technology. This can lead to erroneous entry secondary to incorrect interpretation by the dictating instrument. HPI: 64-year-old male history of diabetes presents for elevated blood sugar. Seen last week in the emergency department for same complaints. States his sugars at home have been greater than 350 last night. Compliant with glipizide which he has been taking for many years and recently started Farxiga. Ran out of [facility] [facility] 3 days ago. Continues to take glipizide. Denies headache, vision changes, fever, chills, cough, shortness of breath, abdominal pain, nausea, vomiting, diarrhea. Has not yet seen PMD since last visit to the ED. 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 EOMI. Cardiovascular: RRR. S1 and S2 normal. No murmur appreciated Resp: Normal work of breathing. No cough, wheezing or crackles appreciated Abdomen: Abdomen is soft, nondistended. Nontender Skin: Intact. No abrasions, laceration or rash over the exposed skin MSK: Normal tone and bulk. Moving all extremities. No obvious deformity. Neuro: Awake and alert. Mentating appropriately. Medical Decision Making Diagnostic Impression: Primary Impression: Hyperglycemia Additional Impressions: CKD (chronic kidney disease) Medication refill ER Course 64-year-old male presents for elevated blood sugar readings at home. Fingerstick shows elevated blood sugar and patient was treated with IV fluids and insulin. Chemistry panel shows baseline chronic renal failure unchanged from previous visit. No anion gap. No concern for DKA at this time. Is otherwise well-appearing. He was treated with insulin and glucose is improving. Will refer again to his PMD but have refilled his Farxiga prescription. Stable for outpatient follow-up and instructions to return with new or worsening symptoms. Laboratory Tests Test 04/01/20 08:30 White Blood Count 6.0 K/UL (4.8-10.8) Red Blood Count 5.20 M/UL (4.70-6.10) Hemoglobin 14.3 G/DL (14.2-18.0) Hematocrit 41.4 % (42.0-52.0) L Mean Corpuscular Volume 80 FL (80-99) Mean Corpuscular Hemoglobin 27.5 PG (27.0-31.0) Mean Corpuscular Hemoglobin Concent 34.5 G/DL (32.0-36.0) Red Cell Distribution Width 15.7 % (11.6-14.8) H Platelet Count 193 K/UL (150-450) Mean Platelet Volume 9.0 FL (6.5-10.1) Neutrophils (%) (Auto) 48.6 % (45.0-75.0) Lymphocytes (%) (Auto) 36.4 % (20.0-45.0) Monocytes (%) (Auto) 11.0 % (1.0-10.0) H Eosinophils (%) (Auto) 2.1 % (0.0-3.0) Basophils (%) (Auto) 1.9 % (0.0-2.0) Sodium Level 133 MMOL/L (136-145) L Potassium Level 4.8 MMOL/L (3.5-5.1) Chloride Level 100 MMOL/L (98-107) Carbon Dioxide Level 27 MMOL/L (21-32) Anion Gap 6 mmol/L (5-15) Blood Urea Nitrogen 56 mg/dL (7-18) H Creatinine 4.0 MG/DL (0.55-1.30) H Estimated Glomerular Filtration Rate 18.3 mL/min (>60) Glucose Level 334 MG/DL (74-106) H POC Whole Blood Glucose Pending Calcium Level 9.6 MG/DL (8.5-10.1) Last Vital Signs Date Time Temp Pulse Resp B/P (MAP) Pulse Ox O2 Delivery O2 Flow Rate FiO2 04/01/20 08:03 97.5 55 18 109/53 (71) 99 Room Air Disposition: HOME, SELF-CARE Condition: Stable Scripts Dapagliflozin Propanediol (Farxiga) 10 Mg Tablet 10 MG PO DAILY for 30 Days, #30 TAB Prov: Stepan Burton MD 04/01/20 Stepan Burton MD Apr 01, 2020 08:08
[2020-04-01] MEDS ORDERED: FARXIGA10 MG PO (08:28)
--- NOTE | 2020-04-01 08:30 | NUR ---
ED Nurse Note:pt. c/o dry mouth and elevated blood sugar, blood was sent to labs and accucgeck done
[2020-04-01 08:41] LABS: BASOPHILS % (AUTO) 1.9 % (0.0-2.0); EOSINOPHILS % (AUTO) 2.1 % (0.0-3.0); HEMATOCRIT 41.4 % (42.0-52.0); HEMOGLOBIN 14.3 G/DL (14.2-18.0); LYMPHOCYTES % (AUTO) 36.4 % (20.0-45.0); MEAN CORPUSCULAR VOLUME 80 FL (80-99); NEUTROPHILS % (AUTO) 48.6 % (45.0-75.0); PLATELET COUNT 193 K/UL (150-450); RED CELL DISTRIBUTION WIDTH 15.7 % (11.6-14.8)
[2020-04-01] MEDS ORDERED: Insulin Human Regular 100units/ml 3ml IV ONE (08:45)
[2020-04-01 08:47] LABS: CALCIUM 9.6 MG/DL (8.5-10.1); POTASSIUM 4.8 MMOL/L (3.5-5.1)
[2020-04-01 08:54] VITALS: BP 109/53
[2020-04-01 09:35] VITALS: BP 112/63
[2020-04-01 09:40] VITALS: BP 112/63
--- NOTE | 2020-04-01 09:40 | NUR ---
ED Nurse Note: Pt cleared by health care Provider for discharge. DC instructions/prescription was given and explained to pt and verbalized understanding of teachings. All medical deviecs such as ID band removed. Pt is AAO x4, ambulatory and left with all personal belongings.
== END 2020-04-01 09:45 | disposition home or self-care (01) ==
LOC: EMR 08:20
DX: E11.65 Type 2 diabetes mellitus with hyperglycemia (principal); I12.9 Hypertensive chronic kidney disease with stage 1 through stage 4 chronic kidney disease, or unspecified chronic kidney disease; E11.22 Type 2 diabetes mellitus with diabetic chronic kidney disease; N18.9 Chronic kidney disease, unspecified; E78.00 Pure hypercholesterolemia, unspecified; Z88.8 Allergy status to other drugs, medicaments and biological substances
CPT/HCPCS: 36415; 80048; 82962; 85025; 96361; 96374; 99284; J1815; J7030